=== PATIENT | female | born 1970 | race Caucasian/White ===

== ENCOUNTER 2017-05-10 12:43 | Emergency (ER) | payer OTHER ==
[~2017-05-10] VITALS: Ht 154.9 cm; Wt 98.9 kg
--- NOTE | ~2017-05-10 | H ---
[facility] [place] [address] HISTORY AND PHYSICAL Name: JAMES NOONAN Room #: DEP [place]any#: [id number] Admission: 05/10/17 Attend Phys: Discharge: 05/10/17 Date of : 70 Report #: [id number] THIS REPORT FOR: //name// CC: Justo Kohler CHIEF COMPLAINT: Right patellar fracture. HISTORY OF PRESENT ILLNESS: This 46-year-old female with some cognitive disability, is residing at a alf. She of the state, and her affairs were managed by durable power of erisa attorney. She fell injuring the right knee and was evaluated at [facility] on the evening of 05/10. X-rays there reveal a mildly comminuted fracture of the right patella with displacement. The skin was intact, and she had no other injuries. I discussed with the Emergency Room physician further treatment options, and we elected to allow the patient to leave the Emergency Room, but come back the following day for planned surgical repair if we could achieve the appropriate administrative permits from her durable power of erisa attorney. At this time, she has returned with plans for surgical repair of the right knee fracture on 05/11. We do have authorization through the durable power of erisa attorney to proceed with surgical correction of this displaced and unstable patellar fracture. At the time of my evaluation, she seems to be comfortable with the exception of the right knee. She is unable to ambulate except with significant discomfort and requiring a good deal of assistance. She is mildly confused with some obvious chronic cognitive disability. PHYSICAL EXAMINATION: GENERAL: However, she seems to be alert and oriented and seems to understand the situation and the nature of her injury. LUNGS: Clear. CARDIOVASCULAR: Reveals a regular rate and rhythm without murmurs. ABDOMEN: Slightly protuberant, soft and nontender. EXTREMITIES: She has good movement of both upper extremities without discomfort. The left lower extremity reveals normal contraalignment and satisfactory range of motion. Right lower extremity is notable for bruising and swelling about the right knee with an obvious defect at the patella and inability to extend the knee against any resistance. Findings are consistent with a displaced and unstable patellar fracture. The overlying skin is intact. The knee itself seems to be stable. The lower leg, foot and ankle appear to be normal. IMAGING: X-rays of the right knee confirmed a transverse mildly comminuted fracture of the patella in the more proximal one-third of the patellar bone. [address] [address] HISTORY AND PHYSICAL Name: JAMES NOONAN [id number] Admission: 05/10/17 Attend Phys: Discharge: 05/10/17 Date of : 70 Report #: [id number] I have discussed this with the patient, and I believe she does have a reasonably good understanding of the situation. She appreciates that she has a knee injury and notes discomfort and inability to ambulate. She wants to go ahead with surgical repair, and I have explained in general the nature of the injury and treatment options. We also have explained this to her durable power of erisa attorney and have received approval to proceed with surgical repair. I expect we will be able to manage this as an outpatient procedure and continue with protection over the coming couple of weeks, then return to my office for followup and suture removal as she will need to limit movement of the knee for the coming 4-6 weeks to achieve satisfactory healing, however. <ELECTRONICALLY SIGNED> By: Dustin Tripathi MD 05/21/17 0746 1602 1619 Dustin Tripathi MD /nt
[2017-05-10] MEDS ORDERED: ACETAMINOPHEN-1 EAC1 PO (14:31)
[2017-05-10 14:57] VITALS: BP 168/83
[2017-05-24] MEDS ORDERED: HYDROCODONE-AP1 EAC6 PO (12:19)
[2017-05-24] MEDS ORDERED: GLUCOTROL5 MG PO (12:20)
[2017-05-24] MEDS ORDERED: ZOLOFT50 MG PO (12:21)
[2017-05-24] MEDS ORDERED: ZYPREXA15 MG PO (12:22)
[2017-05-24] MEDS ORDERED: MAPAP500 M1 PO (12:23)
[2017-05-24] MEDS ORDERED: NAPROSYN500 MG PO (12:24)
[2017-05-24] MEDS ORDERED: MUCINEX600 MG PO (12:24)
[2017-05-24] MEDS ORDERED: ROBITUSSIN100 MG/53 PO (12:25)
[2017-05-24] MEDS ORDERED: CLONAZEPAM 0.50.5 M1 PO (12:26)
[2017-05-24] MEDS ORDERED: METFORMIN HCL500 MG PO (12:26)
[2017-05-24] MEDS ORDERED: JANUVIA100 MG PO (12:27)
[2017-05-24] MEDS ORDERED: PIOGLITAZONE15 MG (12:27)
[2017-05-24] MEDS ORDERED: CLOTRIMAZOLE 1%15 G1 TOP (12:28)
[2017-05-24] MEDS ORDERED: LISINOPRIL5 MG PO (12:29)
[2017-05-24] MEDS ORDERED: SYNTHROID50 MCG PO (12:29)
[2017-05-24] MEDS ORDERED: ZANTAC 150MG T150 MG PO (12:30)
[2017-05-24] MEDS ORDERED: ARICEPT 5 MG TAB5 MG PO (12:31)
[2017-05-24] MEDS ORDERED: OXYBUTYNIN 5 MG5 M2 PO (12:31)
[2017-05-24] MEDS ORDERED: MIRALAX17 GM PO (12:32)
[2017-05-24] MEDS ORDERED: ERRIN0.35 MG PO (12:32)
[2017-05-24] MEDS ORDERED: ERGOCALCIF50000 UNIT PO (12:33)
[2017-05-24] MEDS ORDERED: TRICOR145 MG PO (12:34)
[2017-05-24] MEDS ORDERED: VITAMIN B-12500 MCG PO (12:35)
[2017-05-24] MEDS ORDERED: GEMFIBROZIL 60600 MG PO (12:35)
[2017-05-24] MEDS ORDERED: COLACE100 MG PO (12:35)
[2017-05-24] MEDS ORDERED: NAMENDA 10 MG T10 MG PO (12:36)
[2017-05-24] MEDS ORDERED: TRILEPTAL600 MG PO (12:37)
== END 2017-05-10 16:49 | disposition home or self-care (01) ==
LOC: ER 12:43
DX: S82.031A Displaced transverse fracture of right patella, initial encounter for closed fracture (principal); E11.9 Type 2 diabetes mellitus without complications; Z88.0 Allergy status to penicillin; W18.39XA Other fall on same level, initial encounter; Y93.89 Activity, other specified; Y92.89 Other specified places as the place of occurrence of the external cause; Y99.8 Other external cause status

== ENCOUNTER 2017-05-11 09:23 | Day surgery (SDC) | payer OTHER ==
[~2017-05-11] VITALS: Ht 160 cm; Wt 102.1 kg
--- NOTE | ~2017-05-11 | D ---
[facility] [place] [address] DISCHARGE SUMMARY Name: JAMES NOONAN Room #: DEP [facility] M.R.#: [id number] Admission: 05/11/17 Attend Phys: Dustin Tripathi MD Discharge: 05/11/17 Date of : 70 Report #: [id number] THIS REPORT FOR: //name// CC: Dustin Saavedranica Demianuri DATE OF SERVICE: 05/11/2017 FINAL DIAGNOSIS: Right patellar fracture. OPERATIVE PROCEDURE: Open reduction and internal fixation of right patellar fracture. HISTORY OF PRESENT ILLNESS: This 46-year-old female with some chronic cognitive disability, is a resident of a [facility] and a burgess of the [facility] with a durable power of employment attorney. She fell injuring the right knee resulting in a displaced comminuted patella fracture. She was admitted for surgery for repair. HOSPITAL COURSE: The patient was taken to the operating room on 05/11. She underwent open repair of the right patellar fracture. She tolerated this well. Postoperatively, the wound appears to be stable and well protected in a plaster splint holding the knee in full extension. She has no other current medical problems. I felt she could be discharged back to the [facility] for ongoing care. She will continue with hydrocodone as needed for pain management. She will continue with her other routine medications. I have asked the facility to call me should there be any specific problems or questions from an orthopedic point of view. She will continue with her other physicians with regard to any other general medical issues. I would plan to see her back in my office for followup and suture removal in about 2 weeks. <ELECTRONICALLY SIGNED> By: Dustin Tripathi MD 05/21/17 0747 1616 1632 Dustin Tripathi MD /nt
--- NOTE | ~2017-05-11 | O ---
[facility] [place] [address] OPERATIVE REPORT Name: JAMES NOONAN Room #: DEP [facility]#: [id number] Admission: 05/11/17 Attend Phys: Dustin Tripathi MD Discharge: 05/11/17 Date of : 70 Report #: [id number] THIS REPORT FOR: //name// CC: Dustin Tripathi Shelley Arciniegauri DATE OF SERVICE: 05/11/2017 PREOPERATIVE DIAGNOSIS: Right patellar fracture. POSTOPERATIVE DIAGNOSIS: Right patellar fracture. PROCEDURE: Open reduction internal fixation of right patellar fracture. SURGEON: Dustin Tripathi MD. INDICATIONS: This 46-year-old female has some chronic cognitive disability and is a burgess of the [facility] living in a [facility]. She fell injuring the right knee and was seen at [place] [facility] on 05/10/2017. There, x-rays confirm a comminuted displaced fracture of the right patella. She has no other injuries. I discussed these issues with the Emergency Room physician and elected to bring her back to the hospital the following day for surgical repair. These issues were discussed with the patient and also with her durable power of senior trial attorney. They agreed to go ahead with surgical reconstruction. DESCRIPTION OF PROCEDURE: The patient was taken to the operating room where she was placed under general anesthesia. Prophylactic intravenous antibiotics were administered. Right knee and leg were meticulously prepped and draped. An anterior longitudinal skin incision was made exposing the patella. A comminuted transverse patellar fracture was noted. The proximal fragment was a bit more comminuted and smaller than I expected. Based on the preoperative x-rays, this made fixation somewhat difficult. I did not feel I could establish good fixation with cannulated screws and elected to use 3 smooth K wires placed vertically. These brought the patella back into reasonably good position, although strictly anatomic position was not feasible as there was some comminution and loss of several fragments. This was supplemented with two 18-gauge wires placed in a mmxrjf-vz-occcw tension band fashion. One of these was placed deep to the K-wires and the second was a slightly more superficial, but still had good purchase in the periosteum and distal quadriceps tendon. These were carefully snugged down bringing the fracture back into very good and stable position. The alignment fixation was assessed with intraoperative C-arm and felt to be satisfactory. The K-wires were cut proximally and distally outside the bone and athdqu-os-tpflx wires allowing good secure fixation. The stability was tested by gentle range of motion of the knee and the patella seemed to be in good position with satisfactory stability. Tourniquet was deflated. Good hemostasis was established. The medial and lateral retinaculum [address] [address] OPERATIVE REPORT Name: RENEEHARDEEPJAMES Room #: DEP [facility] M.Beverly.#: [id number] Admission: 05/11/17 Attend Phys: Dustin Tripathi MD Discharge: 05/11/17 Date of : 70 Report #: [id number] also has significant stairs and these were repaired with multiple #1 Vicryl sutures. The subcutaneous tissues were closed with 0 Monocryl. The skin was closed with skin queenie. A sterile dressing and a plaster splint were then applied holding the knee in full extension for protection. The patient was then awakened and returned to the recovery room in good condition. She was monitored there for a suitable period and then discharged home for continued care at her usp facility. I am anticipating follow up in my office in about 2 weeks postoperatively for suture removal. She will probably need to continue in either a cast or a knee immobilizer brace for 6 weeks until she can begin more aggressive range of motion. <ELECTRONICALLY SIGNED> By: Dustin Tripathi MD 05/21/17 0746 1612 1627 Dustin Tripathi MD /nt
[~2017-05-11 09:23] MED LIST: ACETAMINOPHEN-1 EAC1 PO
[2017-05-11 10:51] VITALS: BP 107/69
[2017-05-11 14:06] VITALS: BP 107/69
[2017-05-24] MEDS ORDERED: HYDROCODONE-AP1 EAC6 PO (12:19)
[2017-05-24] MEDS ORDERED: GLUCOTROL5 MG PO (12:20)
[2017-05-24] MEDS ORDERED: ZOLOFT50 MG PO (12:21)
[2017-05-24] MEDS ORDERED: ZYPREXA15 MG PO (12:22)
[2017-05-24] MEDS ORDERED: MAPAP500 M1 PO (12:23)
[2017-05-24] MEDS ORDERED: NAPROSYN500 MG PO (12:24)
[2017-05-24] MEDS ORDERED: MUCINEX600 MG PO (12:24)
[2017-05-24] MEDS ORDERED: ROBITUSSIN100 MG/53 PO (12:25)
[2017-05-24] MEDS ORDERED: METFORMIN HCL500 MG PO (12:26)
[2017-05-24] MEDS ORDERED: CLONAZEPAM 0.50.5 M1 PO (12:26)
[2017-05-24] MEDS ORDERED: JANUVIA100 MG PO (12:27)
[2017-05-24] MEDS ORDERED: PIOGLITAZONE15 MG (12:27)
[2017-05-24] MEDS ORDERED: CLOTRIMAZOLE 1%15 G1 TOP (12:28)
[2017-05-24] MEDS ORDERED: LISINOPRIL5 MG PO (12:29)
[2017-05-24] MEDS ORDERED: SYNTHROID50 MCG PO (12:29)
[2017-05-24] MEDS ORDERED: ZANTAC 150MG T150 MG PO (12:30)
[2017-05-24] MEDS ORDERED: ARICEPT 5 MG TAB5 MG PO (12:31)
[2017-05-24] MEDS ORDERED: OXYBUTYNIN 5 MG5 M2 PO (12:31)
[2017-05-24] MEDS ORDERED: MIRALAX17 GM PO (12:32)
[2017-05-24] MEDS ORDERED: ERRIN0.35 MG PO (12:32)
[2017-05-24] MEDS ORDERED: ERGOCALCIF50000 UNIT PO (12:33)
[2017-05-24] MEDS ORDERED: TRICOR145 MG PO (12:34)
[2017-05-24] MEDS ORDERED: VITAMIN B-12500 MCG PO (12:35)
[2017-05-24] MEDS ORDERED: GEMFIBROZIL 60600 MG PO (12:35)
[2017-05-24] MEDS ORDERED: COLACE100 MG PO (12:35)
[2017-05-24] MEDS ORDERED: NAMENDA 10 MG T10 MG PO (12:36)
[2017-05-24] MEDS ORDERED: TRILEPTAL600 MG PO (12:37)
== END 2017-05-11 16:30 | disposition home or self-care (01) ==
LOC: TBA 09:23 → OR 09:23 → TBA 16:30 → EDSTATUS 05-15 12:20
DX: S82.041A Displaced comminuted fracture of right patella, initial encounter for closed fracture (principal); E11.9 Type 2 diabetes mellitus without complications; F17.210 Nicotine dependence, cigarettes, uncomplicated; Z98.49 Cataract extraction status, unspecified eye; Z88.0 Allergy status to penicillin; Z79.899 Other long term (current) drug therapy; Z79.891 Long term (current) use of opiate analgesic; X58.XXXA Exposure to other specified factors, initial encounter; Y93.89 Activity, other specified; Y92.89 Other specified places as the place of occurrence of the external cause; Y99.8 Other external cause status
CPT/HCPCS: 50010; 50101; 50386; 51277; 51412; 55340; 56525; 57091; 62110; 62900; 70005

== ENCOUNTER 2017-06-13 15:33 | Inpatient (IN) | payer OTHER ==
[~2017-06-13] VITALS: Ht 152.4 cm; Wt 95.3 kg
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
--- NOTE | ~2017-06-13 | H ---
[facility] [place] [address] HISTORY AND PHYSICAL Name: JAMES NOONAN Room #: 352-P ADM IN M.R.#: [id number] Admission: 06/13/17 Attend Phys: Dustin Tripathi MD Discharge: Date of : 70 Report #: [id number] THIS REPORT FOR: //name// [facility]: [facility] Shelley Jose F CHIEF COMPLAINT: Infected right knee patellar fracture. HISTORY OF PRESENT ILLNESS: This 46-year-old female has some chronic cognitive disability from a childhood head injury. She is a resident of a [facility] and is a burgess of the [facility]. She fell several weeks ago injuring the right knee with a displaced patellar fracture. This was treated with surgical repair and postoperative splint protection. Unfortunately, she removed the splint and tried to ambulate with the knee and fell again resulting in a new patellar fracture. She was brought back for a revision repair about 2 weeks ago because of comminution and loss of bone integrity. The repair was performed, but with the use of heavy permanent braided suture rather than stainless steel wires and pins. The alignment and stability seemed initially satisfactory and a more restrictive rigid and permanent long leg splint was applied. She returned for office evaluation and now there is clear evidence of a subcutaneous wound infection and so she is readmitted for further evaluation and treatment with regard to the infection. She is alert and comfortable and afebrile. Cardiac exam and pulmonary exam appear to be normal. The abdomen is obese, soft and nontender. She has no other apparent areas of injury. The right knee reveals obvious swelling and redness with some subcutaneous fluid and purulence. Several queenie are removed to allow open egress of the fluid. Cultures were obtained in my office and were given to the nursing staff here at the hospital. However, at the time of this dictation, it appears that initial culture was misplaced or lost and is not available. We have taken new cultures of the knee at this time. The lower leg, foot and ankle appear to be normal. X-rays of the knee reveals some further separation at the fracture site with some displacement of the patellar fracture measuring about 1 cm. I have discussed these issues at some length with Dr. Pacheco from Infectious Disease. We have started her on IV antibiotics, but are awaiting culture results to refine her antibiotic regimen. At this point, I think at least a suction wound VAC with management through the wound care team is most appropriate. If we are seeing some clinical improvement, then we may continue with this approach. If tomorrow there is no clear improvement, then I think a [address] [address] HISTORY AND PHYSICAL Name: JAEMS NOONAN Room #: [facility] ADM IN M.R.#: [id number] Admission: 06/13/17 Attend Phys: Dustin Tripathi MD Discharge: Date of : 70 Report #: [id number] repeat return to the OR for open wound debridement and irrigation would be the next step. <ELECTRONICALLY SIGNED> By: Dustin Tripathi MD 06/15/17 1458 1013 1051 Dustin Tripathi MD /nt
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
[~2017-06-13 15:33] MED LIST changes: +ARICEPT 5 MG TAB5 MG PO; +CLONAZEPAM 0.50.5 M1 PO; +CLOTRIMAZOLE 1%15 G1 TOP; +COLACE100 MG PO; +ERGOCALCIF50000 UNIT PO; +ERRIN0.35 MG PO; +GEMFIBROZIL 60600 MG PO; +GLUCOTROL5 MG PO; +HYDROCODONE-AP1 EAC6 PO; +JANUVIA100 MG PO; +LISINOPRIL5 MG PO; +MAPAP500 M1 PO; +METFORMIN HCL500 MG PO; +MIRALAX17 GM PO; +MUCINEX600 MG PO; +NAMENDA 10 MG T10 MG PO; +NAPROSYN500 MG PO; +OXYBUTYNIN 5 MG5 M2 PO; +PIOGLITAZONE15 MG; +ROBITUSSIN100 MG/53 PO; +SYNTHROID50 MCG PO; +TRICOR145 MG PO; +TRILEPTAL600 MG PO; +VITAMIN B-12500 MCG PO; +ZANTAC 150MG T150 MG PO; +ZOLOFT50 MG PO; +ZYPREXA15 MG PO
[2017-06-13 16:37] VITALS: BP 159/94
[2017-06-13 18:22] LABS: ABSOLUTE NEUTROPHILS 8.9 thou/uL (1.4-8.2); BASOPHILS 0.9 % (0.0-2.0); EOSINOPHILS 1.1 % (0.0-3.0); HEMATOCRIT 26.7 % (37.0-47.0); HEMOGLOBIN 8.9 gm/dL (12.0-15.0); LYMPHOCYTES 13.8 % (24.0-44.0); MCH 28.6 pg (26.0-34.0); MCHC 33.2 g/dL (28.0-37.0); MONOCYTES 4.7 % (1.0-8.0); POLYS 79.5 % (36.0-66.0); RDW 14.1 % (10.5-14.5); WBC 11.2 thou/uL (4.0-11.0)
[2017-06-13 18:40] LABS: ALBUMIN 2.6 g/dL (3.4-5.0); CALCIUM 9.4 mg/dL (8.5-10.1); CREATININE 0.4 mg/dL (0.6-1.0); POTASSIUM 4.4 mmol/L (3.5-5.1); TOTAL BILIRUBIN 0.1 mg/dL (<0.1-1.0); TOTAL PROTEIN 7.4 g/dL (6.4-8.2)
[2017-06-13 18:47] LABS: PLATELET COUNT 858 thou/uL (150-400)
[2017-06-13 19:03] VITALS: BP 143/79
[2017-06-14 04:10] VITALS: BP 147/97
[2017-06-14 07:43] VITALS: BP 158/90
[2017-06-14 08:01] LABS: URINE BILIRUBIN NEGATIVE (Negative); URINE BLOOD NEGATIVE (Negative); URINE CLARITY CLEAR; URINE COLOR YELLOW; URINE GLUCOSE-RANDOM* NEGATIVE (Negative); URINE KETONES NEGATIVE (Negative); URINE LEUKOCYTES-REFLEX NEGATIVE (Negative); URINE NITRITE-REFLEX NEGATIVE (Negative); URINE PROTEIN (DIPSTICK) 2+ (Negative); URINE SPECIFIC GRAVITY 1.025 (1.005-1.035); URINE UROBILINOGEN 0.2 E.U./dl (0.2-1.0)
[2017-06-14 08:16] LABS: CASTS None Seen /LPF (None Seen); CRYSTALS None Seen /LPF (None Seen); MUCUS 4-6 Moderate strn/LPF (None Seen); SQUAMOUS >10 Many /LPF (0-3); URINE RBC 0-2 Rare /HPF (0-2); URINE WBC-REFLEX 0-5 Rare /HPF (0-5)
[2017-06-14 11:59] LABS: ABSOLUTE NEUTROPHILS 7.2 thou/uL (1.4-8.2); BASOPHILS 1.1 % (0.0-2.0); EOSINOPHILS 1.9 % (0.0-3.0); HEMATOCRIT 27.5 % (37.0-47.0); HEMOGLOBIN 9.5 gm/dL (12.0-15.0); LYMPHOCYTES 14.7 % (24.0-44.0); MCH 29.3 pg (26.0-34.0); MCHC 34.4 g/dL (28.0-37.0); MCV 85.2 fL (80.0-100.0); MONOCYTES 6.5 % (1.0-8.0); PLATELET COUNT 834 thou/uL (150-400); POLYS 75.8 % (36.0-66.0); RBC 3.23 mil/uL (4.20-5.00); RDW 14.3 % (10.5-14.5); WBC 9.5 thou/uL (4.0-11.0)
[2017-06-14 12:10] LABS: CALCIUM 9.6 mg/dL (8.5-10.1); CREATININE 0.5 mg/dL (0.6-1.0); POTASSIUM 4.3 mmol/L (3.5-5.1)
[2017-06-14 16:16] VITALS: BP 149/85
[2017-06-14 19:32] VITALS: BP 168/86
[2017-06-15 03:34] VITALS: BP 124/73
[2017-06-15 08:00] VITALS: BP 152/91
[2017-06-15 12:18] VITALS: BP 160/82
[2017-06-15 16:18] VITALS: BP 180/83
[2017-06-15 19:04] VITALS: BP 165/76
[2017-06-16 03:31] VITALS: BP 158/92
[2017-06-16 08:00] VITALS: BP 160/83
[2017-06-16 12:00] VITALS: BP 144/81
[2017-06-16 12:08] LABS: ABSOLUTE NEUTROPHILS 8.6 thou/uL (1.4-8.2); BASOPHILS 0.5 % (0.0-2.0); EOSINOPHILS 1.2 % (0.0-3.0); HEMATOCRIT 25.9 % (37.0-47.0); HEMOGLOBIN 8.8 gm/dL (12.0-15.0); LYMPHOCYTES 11.9 % (24.0-44.0); MCH 29.2 pg (26.0-34.0); MCHC 33.9 g/dL (28.0-37.0); MCV 86.3 fL (80.0-100.0); MONOCYTES 4.1 % (1.0-8.0); PLATELET COUNT 878 thou/uL (150-400); POLYS 82.3 % (36.0-66.0); RBC 3.01 mil/uL (4.20-5.00); RDW 14.1 % (10.5-14.5); WBC 10.4 thou/uL (4.0-11.0)
[2017-06-16 12:19] LABS: CALCIUM 9.4 mg/dL (8.5-10.1); CREATININE 0.5 mg/dL (0.6-1.0); POTASSIUM 3.5 mmol/L (3.5-5.1)
[2017-06-16 16:29] VITALS: BP 139/82
[2017-06-16 20:00] VITALS: BP 151/87
[2017-06-17 04:00] VITALS: BP 154/85
[2017-06-17 05:45] LABS: ABSOLUTE NEUTROPHILS 6.3 thou/uL (1.4-8.2); EOSINOPHILS 2.4 % (0.0-3.0); HEMATOCRIT 26.1 % (37.0-47.0); HEMOGLOBIN 8.8 gm/dL (12.0-15.0); LYMPHOCYTES 20.6 % (24.0-44.0); MCH 28.9 pg (26.0-34.0); MCHC 33.8 g/dL (28.0-37.0); MCV 85.7 fL (80.0-100.0); MONOCYTES 6.8 % (1.0-8.0); POLYS 69.2 % (36.0-66.0); RBC 3.05 mil/uL (4.20-5.00); RDW 14.3 % (10.5-14.5); WBC 9.1 thou/uL (4.0-11.0)
[2017-06-17 05:53] LABS: PLATELET COUNT 793 thou/uL (150-400)
[2017-06-17 05:55] LABS: CALCIUM 9.5 mg/dL (8.5-10.1); CREATININE 0.5 mg/dL (0.6-1.0)
[2017-06-17 08:07] VITALS: BP 147/77
[2017-06-17 11:39] VITALS: BP 139/86
[2017-06-17 16:25] VITALS: BP 149/77
[2017-06-17 19:45] VITALS: BP 157/81
[2017-06-18 03:20] VITALS: BP 144/76
[2017-06-18 05:16] LABS: ABSOLUTE NEUTROPHILS 6.7 thou/uL (1.4-8.2); BASOPHILS 0.6 % (0.0-2.0); EOSINOPHILS 3.1 % (0.0-3.0); HEMATOCRIT 25.1 % (37.0-47.0); HEMOGLOBIN 8.5 gm/dL (12.0-15.0); MCH 29.1 pg (26.0-34.0); MCHC 33.9 g/dL (28.0-37.0); MCV 85.8 fL (80.0-100.0); MONOCYTES 6.8 % (1.0-8.0); PLATELET COUNT 721 thou/uL (150-400); POLYS 69.5 % (36.0-66.0); RBC 2.93 mil/uL (4.20-5.00); RDW 14.4 % (10.5-14.5); WBC 9.6 thou/uL (4.0-11.0)
[2017-06-18 05:35] LABS: CALCIUM 9.6 mg/dL (8.5-10.1); CREATININE 0.4 mg/dL (0.6-1.0); POTASSIUM 4.1 mmol/L (3.5-5.1)
[2017-06-18 08:03] VITALS: BP 131/70
[2017-06-18 12:18] VITALS: BP 152/84
[2017-06-18] MEDS ORDERED: ANCEF 1GM1 GM/50 M2 IV (16:07)
[2017-06-18] MEDS ORDERED: PROBIOTIC1 EAC1 PO (16:07)
[2017-06-18] MEDS ORDERED: NOVOLOG100 UNIT/1 SUBQ (16:07)
[2017-06-18 17:15] VITALS: BP 151/852
== END 2017-06-18 18:59 | DRG 856 ==
LOC: 4W 15:33 → 3W 06-15 14:02
PROVIDERS: Hospitalist; Internal Medicine Infectious Disease; Orthopaedic Surgery
PROC: 02HV33Z Insertion of Infusion Device into Superior Vena Cava, Percutaneous Approach (ICD-10-PCS; principal; 2017-06-15)
PROC: 0SWC0JC Revision of Synthetic Substitute in Right Knee Joint, Patellar Surface, Open Approach (ICD-10-PCS; 2017-06-18)
PROC: 0SBC0ZZ Excision of Right Knee Joint, Open Approach (ICD-10-PCS; 2017-06-18)
DX: T81.4XXA Infection following a procedure, initial encounter (principal); E43 Unspecified severe protein-calorie malnutrition; S82.001A Unspecified fracture of right patella, initial encounter for closed fracture; Z68.41 Body mass index [BMI] 40.0-44.9, adult; E11.9 Type 2 diabetes mellitus without complications; S09.90XA Unspecified injury of head, initial encounter; G31.84 Mild cognitive impairment of uncertain or unknown etiology; D72.829 Elevated white blood cell count, unspecified; F32.9 Major depressive disorder, single episode, unspecified; Z88.0 Allergy status to penicillin; Z79.899 Other long term (current) drug therapy; W18.39XA Other fall on same level, initial encounter; Y93.89 Activity, other specified; Y92.89 Other specified places as the place of occurrence of the external cause; Y99.8 Other external cause status
CPT/HCPCS: 10047; 10879; 27000; 50010; 50366; 50386; 50643; 53078; 57091; 64037

== ENCOUNTER → 2018-01-15 | Outpatient (CLI) | payer OTHER ==
[~2018-01-15] VITALS: Ht 152.4 cm; Wt 88.6 kg
[~2018-01-15] MED LIST changes: +ANCEF 1GM1 GM/50 M2 IV; +DOXYCYCLINE 10100 MG PO; +KEFLEX500 M1 PO; +NOVOLOG100 UNIT/1 SUBQ; +PROBIOTIC1 EAC1 PO
[2018-01-15 09:56] VITALS: BP 160/103
[2018-01-15 11:16] LABS: ABSOLUTE NEUTROPHILS 7.5 thou/uL (1.4-8.2); BASOPHILS 0.9 % (0.0-2.0); EOSINOPHILS 1.1 % (0.0-3.0); HEMATOCRIT 35.2 % (37.0-47.0); HEMOGLOBIN 11.9 gm/dL (12.0-15.0); LYMPHOCYTES 21.5 % (24.0-44.0); MCH 28.2 pg (26.0-34.0); MCHC 33.7 g/dL (28.0-37.0); MCV 83.6 fL (80.0-100.0); MONOCYTES 4.7 % (1.0-8.0); PLATELET COUNT 594 thou/uL (150-400); POLYS 71.8 % (36.0-66.0); RBC 4.21 mil/uL (4.20-5.00); RDW 14.8 % (10.5-14.5); WBC 10.5 thou/uL (4.0-11.0)
[2018-01-15 11:16] LABS: ALBUMIN 3.7 g/dL (3.4-5.0); CALCIUM 9.6 mg/dL (8.5-10.1); CREATININE 0.5 mg/dL (0.6-1.0); POTASSIUM 4.6 mmol/L (3.5-5.1); TOTAL BILIRUBIN 0.2 mg/dL (<0.1-1.0)
== END ==
LOC: SEN 08:35
PROVIDERS: Internal Medicine Infectious Disease
DX: M86.8X6 Other osteomyelitis, lower leg (principal); B95.61 Methicillin susceptible Staphylococcus aureus infection as the cause of diseases classified elsewhere